=== PATIENT | female | born 1995 | race American Indian/Alaskan Native ===

== ENCOUNTER 2020-10-05 01:12 | Emergency (ER) | payer MEDICAID ==
--- NOTE | 2020-10-05 04:55 | Emergency Department Report ---
- General Chief complaint: Urogenital-Female Stated complaint: PAIN/LUMP ON BREAST Time Seen by Provider: 10/05/20 04:16 Source: patient Mode of arrival: Ambulatory Limitations: No Limitations - History of Present Illness Initial comments: Patient is a 25-year-old female presents emergency room with complaints of a possible abscess to the lower right breast that began 2 days ago. She states that she has noticed a small amount of pus drainage. She denies any fever, nausea, vomiting, diarrhea, chills, nipple drainage, nipple bleeding. No past medical history. She states she has an allergy to ibuprofen. Last menstrual cycle last week. - Related Data Previous Rx's Medication Instructions Recorded Last Taken Type Acetaminophen [Tylenol] 650 mg PO Q8HR PRN #20 capsule 10/05/20 Unknown Rx Neomycin/Bacitracin/Polymyxinb 1 applicatio TP BID #14 oint...g. 10/05/20 Unknown Rx [Triple Antibiotic Ointment] Sulfamethoxazole/Trimethoprim 1 each PO BID 7 Days #14 tablet 10/05/20 Unknown Rx [Bactrim DS TAB] Allergies Allergy/AdvReac Type Severity Reaction Status Date / Time No Known Allergies Allergy Unverified 10/05/20 03:57 Abscess Boil HPI - HPI Chief Complaint: Urogenital-Female Stated Complaint: PAIN/LUMP ON BREAST Time Seen by Provider: 10/05/20 04:16 Home Medications: Previous Rx's Medication Instructions Recorded Last Taken Type Acetaminophen [Tylenol] 650 mg PO Q8HR PRN #20 capsule 10/05/20 Unknown Rx Neomycin/Bacitracin/Polymyxinb 1 applicatio TP BID #14 oint...g. 10/05/20 Unknown Rx [Triple Antibiotic Ointment] Sulfamethoxazole/Trimethoprim 1 each PO BID 7 Days #14 tablet 10/05/20 Unknown Rx [Bactrim DS TAB] Allergies/Adverse Reactions: Allergies Allergy/AdvReac Type Severity Reaction Status Date / Time No Known Allergies Allergy Unverified 10/05/20 03:57 ED Review of Systems ROS: Stated complaint: PAIN/LUMP ON BREAST Other details as noted in HPI Comment: All other systems reviewed and negative ED Past Medical Hx - Past Medical History Previous Medical History?: No - Surgical History Past Surgical History?: No - Social History Smoking Status: Never Smoker Substance Use Type: None - Medications Home Medications: Home Medications Medication Instructions Recorded Confirmed Last Taken Type Acetaminophen [Tylenol] 650 mg PO Q8HR PRN #20 capsule 10/05/20 Unknown Rx Neomycin/Bacitracin/Polymyxinb 1 applicatio TP BID #14 oint...g. 10/05/20 Unknown Rx [Triple Antibiotic Ointment] Sulfamethoxazole/Trimethoprim 1 each PO BID 7 Days #14 tablet 10/05/20 Unknown Rx [Bactrim DS TAB] ED Physical Exam - General Limitations: No Limitations General appearance: alert, in no apparent distress - Head Head exam: Present: atraumatic, normocephalic - Eye Eye exam: Present: normal appearance - ENT ENT exam: Present: mucous membranes moist - Respiratory Respiratory exam: Absent: respiratory distress, accessory muscle use - Neurological Exam Neurological exam: Present: alert, oriented X3 - Psychiatric Psychiatric exam: Present: normal affect, normal mood - Skin Skin exam: Present: warm, dry, other (completion engineer: MANOJ rashid, there is a 2 cm area of induration present to the right under breast, there is a small 1 cm linear abrasion, she states her bra does rub in that region, no fluctuance, no drainage, no significant surrounding cellulitis, no nipple retraction, no nipple discharge, no peau d'orang) ED Course Vital Signs 10/05/20 10/05/20 03:31 05:26 Temperature 97.9 F 98.2 F Pulse Rate 61 72 Respiratory 20 16 Rate Blood Pressure 115/68 Blood Pressure 110/82 [Left] O2 Sat by Pulse 100 100 Oximetry ED Medical Decision Making - Medical Decision Making Patient is a 25-year-old female presents emergency room with complaints of a possible abscess to the lower right breast that began 2 days ago. She states that she has noticed a small amount of pus drainage. She denies any fever, nausea, vomiting, diarrhea, chills, nipple drainage, nipple bleeding. No past medical history. She states she has an allergy to ibuprofen. Last menstrual cycle last week. Vitals are normal. On exam:completion engineer: MANOJ rashid, there is a 2 cm area of induration present to the right under breast, there is a small 1 cm linear abrasion, she states her bra does rub in that region, no fluctuance, no drainage, no significant surrounding cellulitis, no nipple retraction, no nipple discharge, no peau d'orange. Examination very consistent with cellulitis, no drainable abscess at this time. Patient given prescription for Bactrim, Tylenol, triple antibiotic ointment. Advised patient Please use medication as prescribed. Please use warm compresses. Follow-up with your primary care doctor in the next 3 days for reexamination. Return to emergency room for new or worsening symptoms including but not limited to worsening swelling, worsening redness, fever, chills, vomiting, increasing drainage, etc. Prior to discharge, patient advised nurse that she used an eyebrow razor to make a small cut and that is what the linear abrasion is from, patient is unsure of her Tdap status, given a Tdap, discussed with patient to not attempt this at home and discussed that she could have worsening infection secondary to doing this Critical care attestation.: If time is entered above; I have spent that time in minutes in the direct care of this critically ill patient, excluding procedure time. ED Disposition Clinical Impression: Cellulitis of breast Disposition: DC-01 TO HOME OR SELFCARE Is pt being admited?: No Does the pt Need Aspirin: No Condition: Stable Instructions: Cellulitis, Adult Additional Instructions: Please use medication as prescribed. Please use warm compresses. Follow-up with your primary care doctor in the next 3 days for reexamination. Return to emergency room for new or worsening symptoms including but not limited to worsening swelling, worsening redness, fever, chills, vomiting, increasing drainage, etc. Prescriptions: Sulfamethoxazole/Trimethoprim [Bactrim DS TAB] 1 each PO BID 7 Days #14 tablet Neomycin/Bacitracin/Polymyxinb [Triple Antibiotic Ointment] 1 applicatio TP BID #14 oint...g. Acetaminophen [Tylenol] 650 mg PO Q8HR PRN #20 capsule PRN Reason: pain Referrals: PRIMARY CAREMD [Primary Care Provider] - 3-5 Days DEDE CHAMBERS MD [Staff Physician] - 3-5 Days [facility] [Provider Group] - 3-5 Days Time of Disposition: 04:53 Print Language: TAJIK
[2020-10-05] MEDS ORDERED: TETANUS,DIPH,PERTUSS(ACELL) VACCINE 0.5 ML SYRINGE IM ONE (05:13)
[2020-10-05 05:47] VITALS: BP 110/82
== END 2020-10-05 05:26 | disposition home or self-care (01) ==
LOC: ED 01:12
DX: N61.0 Mastitis without abscess (principal); Z79.899 Other long term (current) drug therapy
CPT/HCPCS: 90471; 90715; 99282

== ENCOUNTER 2021-09-26 17:11 | Emergency (ER) | payer OTHER ==
[2021-09-26] MEDS ORDERED: SODIUM CHLORIDE 0.9% 500 ML 500 ML IV ONE (17:38)
--- NOTE | 2021-09-26 18:11 | XRay Report ---
XR chest 1V ap INDICATION / CLINICAL INFORMATION: possible Sepsis. COMPARISON: None available. FINDINGS: SUPPORT DEVICES: None. HEART /PULMONARY VASCULATURE: No significant abnormality. LUNGS / PLEURA: Low lung volumes with streaky bibasilar opacities, favored to reflect atelectasis. No sizable pleural effusion. No pneumothorax. IMPRESSION: Low lung volumes with streaky bibasilar opacities, favored to reflect atelectasis. Otherwise, no acut e abnormality. Signer Name: Marcos Michaud MD Signed: 09/26/2021 6:06 PM Workstation Name: [id number]
[2021-09-26] MEDS ORDERED: ACETAMINOPHEN 500 MG TAB PO ONE (18:15)
[2021-09-26] MEDS ORDERED: SODIUM CHLORIDE 0.9% 1000 ML 1,000 ML IV ONE (18:15)
--- NOTE | 2021-09-26 18:19 | Emergency Department Report ---
ED General Adult HPI - General Chief complaint: Fever Stated complaint: HEADACHE/VOMITTING Time Seen by Provider: 09/26/21 18:10 Source: patient, family Mode of arrival: Ambulatory Limitations: No Limitations - History of Present Illness Initial comments: Patient is 25-year-old female with no significant past medical history. Patient presented to the ER complaining of 1 week history of fever, generalized body ache, cough, shortness of breath and right upper and lower abdominal pain. Patient also reported that after she started vomiting she started having some neck pain to. Patient associated the neck pain only when she vomits. Patient denied any loss of consciousness. No diarrhea. No recent sick contact. - Related Data Previous Rx's Medication Instructions Recorded Last Taken Type Acetaminophen [Tylenol] 650 mg PO Q8HR PRN #20 capsule 10/05/20 Unknown Rx Neomycin/Bacitracin/Polymyxinb 1 applicatio TP BID #14 oint...g. 10/05/20 Unknown Rx [Triple Antibiotic Ointment] Sulfamethoxazole/Trimethoprim 1 each PO BID 7 Days #14 tablet 10/05/20 Unknown Rx [Bactrim DS TAB] Allergies Allergy/AdvReac Type Severity Reaction Status Date / Time ibuprofen [From Advil] Allergy Swelling Verified 09/26/21 20:30 ED Review of Systems ROS: Stated complaint: HEADACHE/VOMITTING Other details as noted in HPI Comment: All other systems reviewed and negative Constitutional: chills, fever Respiratory: cough, shortness of breath. denies: orthopnea, SOB with exertion, SOB at rest, wheezing Cardiovascular: palpitations. denies: chest pain Gastrointestinal: abdominal pain, nausea, vomiting. denies: diarrhea, constipation, hematemesis, hematochezia Musculoskeletal: denies: back pain Neurological: headache. denies: weakness, numbness, paresthesias, confusion, abnormal gait ED Past Medical Hx - Past Medical History Previous Medical History?: Yes Additional medical history: heart murmur - Surgical History Past Surgical History?: No - Social History Smoking Status: Never Smoker Substance Use Type: None - Medications Home Medications: Home Medications Medication Instructions Recorded Confirmed Last Taken Type Acetaminophen [Tylenol] 650 mg PO Q8HR PRN #20 capsule 10/05/20 Unknown Rx Neomycin/Bacitracin/Polymyxinb 1 applicatio TP BID #14 oint...g. 10/05/20 Unknown Rx [Triple Antibiotic Ointment] Sulfamethoxazole/Trimethoprim 1 each PO BID 7 Days #14 tablet 10/05/20 Unknown Rx [Bactrim DS TAB] ED Physical Exam - General Limitations: No Limitations General appearance: alert, in no apparent distress - Head Head exam: Present: atraumatic, normocephalic, normal inspection - ENT ENT exam: Present: mucous membranes dry - Neck Neck exam: Present: normal inspection, full ROM. Absent: tenderness, meningismus, lymphadenopathy, thyromegaly - Respiratory Respiratory exam: Present: normal lung sounds bilaterally - Cardiovascular Cardiovascular Exam: Present: tachycardia - GI/Abdominal GI/Abdominal exam: Present: soft, tenderness, normal bowel sounds. Absent: distended, guarding, rebound, rigid, organomegaly, mass, bruit, pulsatile mass, hernia - Extremities Exam Extremities exam: Present: normal inspection, full ROM, normal capillary refill. Absent: tenderness, pedal edema, joint swelling, calf tenderness - Back Exam Back exam: Present: normal inspection, full ROM. Absent: CVA tenderness (R), CVA tenderness (L) - Neurological Exam Neurological exam: Present: alert, oriented X3, CN II-XII intact, normal gait, reflexes normal. Absent: motor sensory deficit - Psychiatric Psychiatric exam: Present: normal mood - Skin Skin exam: Present: warm, intact, normal color ED Course Vital Signs 09/26/21 09/26/21 09/26/21 17:12 17:28 17:54 Temperature 101 F H 103.0 F H Pulse Rate 107 H 99 H Respiratory 22 20 Rate Blood Pressure 114/58 O2 Sat by Pulse 99 Oximetry 09/26/21 09/26/21 09/26/21 18:01 18:15 18:31 Temperature Pulse Rate 95 H 105 H 111 H Respiratory 24 20 22 Rate Blood Pressure 104/69 107/76 128/94 O2 Sat by Pulse 98 100 100 Oximetry 09/26/21 09/26/21 09/26/21 18:45 19:01 19:15 Temperature Pulse Rate 103 H 103 H 103 H Respiratory 20 25 H 26 H Rate Blood Pressure 109/68 119/63 114/49 O2 Sat by Pulse 99 99 99 Oximetry 09/26/21 09/26/21 19:45 20:01 Temperature Pulse Rate 101 H 100 H Respiratory 27 H 24 Rate Blood Pressure 113/73 99/53 O2 Sat by Pulse 99 100 Oximetry ED Medical Decision Making - Lab Data Result diagrams: 09/26/21 18:07 09/26/21 18:07 - EKG Data -: EKG Interpreted by Me EKG shows normal: sinus rhythm Rate: tachycardia - EKG Data Interpretation: no acute changes - Radiology Data Radiology results: report reviewed - Medical Decision Making Patient is 25-year-old female with no significant past medical history. Patient presented to the ER complaining of 1 week history of fever, generalized body ache, cough, shortness of breath and right upper and lower abdominal pain. Patient also reported that after she started vomiting she started having some neck pain to. Patient associated the neck pain only when she vomits. Patient denied any loss of consciousness. No diarrhea. No recent sick contact. Patient received normal saline and Tylenol. Labs reviewed and is unremarkable except for UTI. CT abdomen and pelvis showed right pyelonephritis. Patient received Rocephin 1 g IV. Patient stated that she is feeling much better. Patient given prescription for Macrobid and advised to follow-up with her primary doctor in the next 2 to 3 days and to return to the ER if she develop any new symptoms. Critical care attestation.: If time is entered above; I have spent that time in minutes in the direct care of this critically ill patient, excluding procedure time. ED Disposition Clinical Impression: Acute abdominal pain, Acute pyelonephritis, Fever Disposition: 01 HOME / SELF CARE / HOMELESS Is pt being admited?: No Condition: Stable Instructions: Pyelonephritis, Adult, [id number], Fever, Adult, [id number] Referrals: DEDE CHAMBERS MD [Primary Care Provider] - 3-5 Days
[2021-09-26 18:41] LABS: Alanine Aminotransferase 27 units/L (7-56); Albumin 4.4 g/dL (3.9-5); BUN/Creatinine Ratio 9; Blood Urea Nitrogen 8 mg/dL (7-17); Calcium 8.8 mg/dL (8.4-10.2); Hemolysis Index 0
[2021-09-26 18:51] LABS: INR 1.09 (0.87-1.13)
[2021-09-26 18:54] LABS: Hematocrit 30.5 % (30.3-42.9); Hemoglobin 9.4 gm/dl (10.1-14.3); Mean Corpuscular HGB Conc 31 % (30-34); Mean Corpuscular Volume 74 fl (79-97); Platelet Count 291 K/mm3 (140-440); Red Blood Count 4.13 M/mm3 (3.65-5.03); Red Cell Distribution Width 12.9 % (13.2-15.2)
--- NOTE | 2021-09-26 20:00 | Cat Scan Report ---
CT ABDOMEN AND PELVIS WITH CONTRAST INDICATION / CLINICAL INFORMATION: abdominal pain. TECHNIQUE: Axial CT images were obtained through the abdomen and pelvis after IV contrast. All CT sc ans at this location are performed using CT dose reduction for ALARA by means of automated exposure c ontrol. COMPARISON: None available. FINDINGS: LOWER CHEST: Bibasilar subsegmental atelectasis. LIVER: No significant abnormality. GALLBLADDER: No significant abnormality. PANCREAS: No significant abnormality. SPLEEN: No significant abnormality. ADRENALS: No significant abnormality. RIGHT KIDNEY / URETER: Faint area of subcortical hypoattenuation of inoperable and lower pole with mi ld perinephric inflammation about the inferior pole. LEFT KIDNEY / URETER: Couple of small focal areas of decreased enhancement involving the left renal c ortex upper pole, midpole and lower pole region. No significant perinephric inflammation or urothelia l enhancement. STOMACH / SMALL BOWEL: No significant abnormality. COLON: No significant abnormality. APPENDIX: No significant abnormality. PERITONEUM: No free fluid, free air or organized collection. LYMPH NODES: No significant adenopathy. AORTA / ARTERIES/ VEINS: No significant abnormality. URINARY BLADDER: No significant abnormality. REPRODUCTIVE ORGANS: No significant abnormality. ADDITIONAL FINDINGS: None. SKELETAL SYSTEM: No significant abnormality. IMPRESSION: There are a few small areas of wedge-shaped hypoenhancement involving the bilateral renal cortices as detailed above with mild perinephric inflammation about the inferior pole right kidney, suggesting e jd, acute pyelonephritis. Recommend correlation with urinalysis. No other acute abnormalities within the abdomen or pelvis. Signer Name: Paddy Jones MD Signed: 09/26/2021 7:56 PM Workstation Name: [id number]
[2021-09-26] MEDS ORDERED: cefTRIAXone/NS 2 GM/100 ML 2 GM/100 ML BAG IV ONE (20:08)
[2021-09-26 21:15] LABS: Bilirubin,Urine NEG (Negative); Blood,Urine SM (Negative); Color,Urine Amber (Yellow); Mucus,Urine FEW /HPF
[2021-09-26 21:17] LABS: WBC,Urine > 182.0 /HPF (0.0-6.0)
[2021-09-26 21:45] VITALS: BP 99/53
[2021-09-26 23:20] LABS: Basophils % (Manual) 0 % (0.0-1.8); Eosinophils % (Manual) 0 % (0.0-4.3); Hypochromasia 1+; Total Cells Counted 100
[2021-09-26 23:23] LABS: Platelet Estimate Consistent w Auto
--- NOTE | 2021-09-27 10:46 | Electrocardiograph Report ---
[facility] Test Date: 2021-09-26 Test Time: 17:47:40 Pat Name: LISSA NEW Department: Room: Gender: F Laminator Preforms: REMINGTON : 1995 Requested By: ALVA GARCIA Order Number: [id number] Reading MD: Eleno Chang Measurements Intervals Russell Rate: 95 P: 58 LA: 128 QRS: 44 QRSD: 81 T: -3 QT: 324 QTc: 408 Interpretive Statements Sinus rhythm Nonspecific T abnormalities, anterior leads No previous ECG available for comparison Electronically Signed On 09-27-2021 10:46:33 EDT by Eleno Chang
== END 2021-09-26 22:18 | disposition home or self-care (01) ==
LOC: ED 17:11
DX: N10 Acute pyelonephritis (principal); R10.9 Unspecified abdominal pain; R50.9 Fever, unspecified; Z88.6 Allergy status to analgesic agent
CPT/HCPCS: 36415; 71045; 74177; 80053; 81001; 82140; 82805; 84703; 85007; 85025; 85610; 87040; 87076; 87086; 87186; 93005; 96361; 96365; 99284; J0696; J7030; J7040; Q9967